=== PATIENT | female | born 1965 | race Caucasian/White ===

== ENCOUNTER 2020-04-17 20:33 | Emergency (ER) | payer BC ==
[~2020-04-17] VITALS: Ht 180.3 cm; Wt 102.1 kg
[~2020-04-17 20:33] MED LIST: CELEXA40 MG PO; HCTZ; KEFLEX500 MG PO; LOPRESSOR; MEDROL DOSPAK21 TA1 PO; [UNRECOGNIZED DRUG - REMARK]
[2020-04-17] MEDS ORDERED: CYMBALTA20 MG PO (20:49)
[2020-04-17] MEDS ORDERED: BACLOFEN5 MG PO (20:49)
[2020-04-17] MEDS ORDERED: METFORMIN HCL500 M3 PO (20:49)
[2020-04-17] MEDS ORDERED: NEURONTIN100 MG PO (20:49)
[2020-04-17] MEDS ORDERED: COZAAR 25 MG TA25 M1 PO (20:50)
[2020-04-17] MEDS ORDERED: NORCO 5-325 TA1 EAC2 PO (21:03)
[2020-04-17 21:12] VITALS: BP 165/92
== END 2020-04-17 21:13 | disposition home or self-care (01) ==
LOC: M.ERS 20:33
DX: G89.29 Other chronic pain (principal); M54.5 Low back pain; M54.6 Pain in thoracic spine; Z88.5 Allergy status to narcotic agent

== ENCOUNTER → 2021-02-22 | Outpatient (CLI) | payer BC ==
[~2021-02-22] MED LIST changes: +BACLOFEN5 MG PO; +COZAAR 25 MG TA25 M1 PO; +CYMBALTA20 MG PO; +METFORMIN HCL500 M3 PO; +NEURONTIN100 MG PO; +NORCO 5-325 TA1 EAC2 PO
== END ==
LOC: M.ULTRA 11:28
PROVIDERS: ATTEND Nurse Practitioner Family
DX: M79.661 Pain in right lower leg (principal)